=== PATIENT | male | born 1970 | race African-American/Black ===

== ENCOUNTER 2022-07-20 07:53 | Emergency (ER) | payer OTHER, SELFPAY ==
[2022-07-20 07:54] VITALS: BP 164/110; PULSE 70; RESP 14; TEMP 36.2; O2SAT 100; BMI 30.4
[2022-07-20 08:06] VITALS: BP 158/99
--- NOTE | 2022-07-20 08:06 | EKG12_ITS ---
Test Reason : CP Blood Pressure : / mmHG Vent. Rate : 062 BPM Atrial Rate : 062 BPM P-R Int : 188 ms QRS Dur : 082 ms QT Int : 366 ms P-R-T Axes : 064 006 -10 degrees QTc Int : 371 ms Poor data quality, interpretation may be adversely affected Normal sinus rhythm Normal ECG Confirmed by DELILAH TOM, REY ([id number]), photography editor RAQUEL PURDY ([id number]) on 07/22/2022 10:34:16 AM Referred By: BROOKLYNN Confirmed By:REY MAZARIEGOS MD
--- NOTE | 2022-07-20 08:07 | EDS_ITS ---
HPI History of Present Illness Chief Complaint: Chest Pain Narrative Narrative: 51-year-old male past medical history of heartburn having intermittent left- sided chest pain since yesterday. States that last few minutes. Has been coming and going yesterday. States is always in the left pectoral area. He denies any trauma to the area. No nausea or vomiting, no shortness of breath or diaphoresis. He states that he took heartburn medication and it resolved. However, it happened again at 3 AM today. This was approximately 5 hours ago. He denies any leg swelling or other symptoms but states it might be worse with exertion. PFSH PFSH Medical History no medical history Allergy/AdvReac Type Severity Reaction Status Date / Time aspirin AdvReac Other Verified 07/20/22 07:56 Social History Smoking Status: Never smoker ROS ROS ED ROS Narrative Constitutional: No fever, no chills. HEENT: No sore throat. No neck pain. No loss of vision. No rhinorrhea. Cardiovascular: Left-sided chest pain described as achy. No palpitations. No pedal edema. Respiratory: No cough, no shortness of breath. Abdominal: No abdominal pain. No nausea. No vomiting. Genitourinary: No dysuria. No hematuria. Musculoskeletal: No myalgias. No arthralgias. Neurologic: No headaches. No dizziness. No lightheadedness. Skin: No rash. No change in color. Psychiatric: No depression. No anxiety. EXAM Physical Exam Narrative Exam Narrative: Afebrile. Vital signs noted. HEENT: Normocephalic. Atraumatic. PERRL, EOMI. Neck soft and supple. No point tenderness or step off. Cardiovascular: Regular rate and rhythm. No murmurs, rubs, or gallops appreciated. Respiratory: No tachypnea. Lungs clear to auscultation bilaterally. Gastrointestinal: Abdomen soft, nontender, with normoactive bowel sounds. No rebound or guarding. Neurological: Awake. Alert. Nonfocal, nonlateralizing. Skin: No rash. Normal color. No pallor. Musculoskeletal: No pedal edema. Full range of motion extremities. Const Vital Signs: 07/20/22 07:54 07/20/22 08:06 05/14/23 08:06 Temperature 97.2 F L Temperature Source Temporal Pulse Rate 70 Respiratory Rate 14 Respiratory Effort Normal Non-Labored Blood Pressure 164/110 H 158/99 H Blood Pressure Mean 128 118 Pulse Ox 100 Oxygen Delivery Method Room Air 07/20/22 08:09 07/20/22 09:00 Temperature Temperature Source Pulse Rate 62 Respiratory Rate 14 Respiratory Effort Blood Pressure 142/97 H Blood Pressure Mean 112 Pulse Ox 96 Oxygen Delivery Method Room Air Room Air Heart Score History: Slightly/Non-Suspicious ECG: Normal Age: >45 - <65 years Risk Factors: No Risk Factors Score: 1 MDM MDM MDM Narrative Medical decision making narrative: Was noted that patient has slightly elevated blood pressure in the emergency department. I have low suspicion for pulmonary embolism as his pulse is 70 and his pulse ox is 100% on room air, and he does not have risk factors. EKG was obtained and interpreted by myself as normal sinus rhythm at 62 bpm without ectopy or acute ST changes. No STEMI. Feel that cardiac ischemia from ST elevation MS has been ruled out. I will obtain serial troponins to help rule out coronary artery disease. It does sound like he may have more heartburn type symptoms with pain radiating to his left pectoral area. I reviewed his laboratory work, and he has a normal white count of 5.1, hemoglobin normal at 14.4, platelet count normal at 317. Electrolyte panel was reviewed and chloride is slightly elevated at 108 which I think is nonspecific. Glucose elevated appropriately at 118 with a normal anion gap of 6. His initial high-sensitivity troponin is 5. Repeat 2-hour troponin is also 5 for a delta of 0. I do feel that he can be discharged safely home with follow-up to his primary care provider. He did have elevated blood pressure reading of 164/110, but it has come down to borderline at 142/97. He was told he should have this repeated in the next few days and follow-up with his primary care provider. I reviewed his chest x-ray and interpreted it individually and see no evidence of pneumothorax or consolidation. I do not feel that antibiotics are indicated. I also do not feel that he requires observation at this time as I have reviewed his radiology report which confirms my independent interpretation of his chest x-ray. He will follow-up with his primary care provider. Return instructions were reviewed. Disposition is discharged home in stable condition. Patient and are comfortable with the plan. History & Record Review Discussion w/independent historian: Patient Additional record(s) reviewed:: Prior ED visit Lab Data Attestation: I reviewed the patient's lab results. Labs: Laboratory Results - last 24 hr 07/20/22 07/20/22 07/20/22 08:05 08:05 10:16 WBC 5.1 RBC 5.03 Hgb 14.4 Hct 44.8 MCV 89.1 MCH 28.6 MCHC 32.1 RDW Std Deviation 37.2 RDW Coeff of Evonne 11.6 Plt Count 317 MPV 9.3 Immature Gran % (Auto) 0.200 Neut % (Auto) 45.7 L Lymph % (Auto) 42.1 H Tyrrell % (Auto) 10.6 H Eos % (Auto) 0.6 Baso % (Auto) 0.8 Absolute Neuts (auto) 2.3 Absolute Lymphs (auto) 2.15 Nucleated RBC % 0 Sodium 142 Potassium 4.1 Chloride 108 H Carbon Dioxide 28.0 Anion Gap 6 BUN 10 Creatinine 1.29 Estim Creat Clear Calc 74.36 Est GFR (MDRD) Af Amer 75 Est GFR (MDRD) Non-Af 62 BUN/Creatinine Ratio 7.8 L Glucose 118 H Calcium 9.3 Troponin I High Sens 5 5 Radiography Diagnostic Testing: Clinical Impression(s) from Imaging Studies Chest X-Ray 07/20/22 08:11 IMPRESSION: No acute thoracic pathology. Electronically Signed: Carl Reynolds MD at 8:51 EDT Reading Location ID and State: [address] [place] [address] Tel , Service support , Discharge Plan Triage Chief Complaint: Chest Pain ED Provider: Jayson Mcgowan Dx/Rx/DC Orders Clinical Impression: Chest pain, Elevated blood pressure, situational Instructions: ED Chest Pain, Noncardiac Primary Care Provider: Toya Reid NP Referrals: Severo Weathers PA [Med Staff - Adv Practice Prof] - Activity Restrictions/Additional Instructions: Follow-up with your primary care provider in the next few days/this week. Return with increasing pain, new or worsening symptoms. Your blood pressure was slightly elevated today, but then returned to borderline elevated. Have this checked again in the next few days. Disposition Disposition: Home, Self Care
--- NOTE | 2022-07-20 08:11 | RAD_ITS ---
STUDY: X-RAY CHEST REASON FOR EXAM: Male, 51 years old. Chest pain TECHNIQUE: Frontal views of the chest COMPARISON: None. FINDINGS: The lungs are clear. There are no pleural effusions. There is no pneumothorax. The heart is normal in size. The visualized osseous structures are within normal limits. RAD/Chest 1 View (Portable) IMPRESSION: No acute thoracic pathology. Electronically Signed: Carl Reynolds MD at 8:51 EDT ,
[2022-07-20 08:21] LABS: Absolute Lymphocyte Count 2.15 X10^3/uL (0.83-4.51); Absolute Neutrophil Count 2.3 X10^3/uL (2.0-7.7); Basophil# 0.04 X10^3/uL; Basophil% 0.8 % (0-1); Eosinophil# 0.03 X10^3/uL; Eosinophils% 0.6 % (0-5); Hematocrit 44.8 % (40-54); Hemoglobin 14.4 g/dL (13.0-16.5); Lymphocyte # 2.15 X10^3/ul (0.83-4.51); Lymphocyte % 42.1 % (19-41); Mean Corp Hgb Conc 32.1 g/dL (32-36); Mean Corpuscular Hgb 28.6 pg (27.0-32.0); Mean Corpuscular Volume 89.1 fL (80-94); Mean Platelet Vol. 9.3 fl (6.2-12.0); Monocyte# 0.54 X10^3/uL; Monocyte% 10.6 % (0-10); NRBC Flagged by Analyzer 0 % (0-5); Neutrophil # 2.34 X10^3/uL (2.7-7.7); Neutrophil % 45.7 % (47-70); Platelet Count 317 K/mm3 (150-450); RBC Distribution Width CV 11.6 % (11.6-14.6); RBC Distribution Width SD 37.2 fl (35.1-43.9); Red Blood Count 5.03 M/mm3 (4.6-6.2); White Blood Count 5.1 K/mm3 (4.4-11.0)
[2022-07-20 08:42] LABS: Anion Gap 6 (5-15); BUN 10 mg/dL (7-18); BUN/Creat Ratio 7.8 RATIO (10-20); Calcium,Total 9.3 mg/dL (8.5-10.1); Chloride 108 mmol/L (98-107); Creatinine, Serum 1.29 mg/dL (0.70-1.30); EST Glomerular Filtration Rate 62 mL/min (>60); Est Glom Filt Rate - Afr Amer 75 mL/min (>60); Estimated Creatinine Clearance 74.36 ml/min; Glucose 118 mg/dL (74-106); Potassium 4.1 mmol/L (3.5-5.1); Sodium Level 142 mmol/L (136-145); Troponin-I HS (w/2H Reflex) 5 pg/mL (3.0-78.0)
[2022-07-20 09:00] VITALS: BP 142/97; PULSE 62; RESP 14; O2SAT 96
[2022-07-20 10:15] LABS: Reflex Troponin-HS? (from REC) Y
[2022-07-20 10:47] LABS: Troponin-I HS 5 pg/mL (3.0-78.0)
[2022-07-20 11:15] VITALS: BP 139/71; RESP 16; O2SAT 100
== END 2022-07-20 11:15 | disposition home or self-care (01) ==
PROVIDERS: Emergency Provider Emergency Medicine; PCP Registered Nurse; Visit Provider Emergency Medicine
DX: R07.9 Chest pain, unspecified (principal); R03.0 Elevated blood-pressure reading, without diagnosis of hypertension
CPT/HCPCS: 71045; 80048; 84484; 85025; 93005; 99284; A4216

== ENCOUNTER 2023-04-03 08:00 | Outpatient (RCR) | payer OTHER, SELFPAY ==
--- NOTE | 2023-04-03 08:40 | HP.OTEVAL_ITS ---
Patient's Visit Information Visit Information Visit Information: MARYCHUY SAMPSON is a 52 year old M, referred to Occupational Therapy by Toya Reid, ABBEY-C, with a diagnosis of Right elbow pain. Date of Evaluation: 03/20/23 Occupational Therapist: MARCIA Feliciano/Inge, CHT Subjective Subjective: This 52 year old male was seen for OT eval with dx right elbow pain. 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 pt states he works at [employer]- pt states he works 4 days a week 10 hour shifts- pt states he has used a copper fit brace and that helps- pt states ice does help. pt is active, has gym membership and has noticed limited with his exercise routine. Pt would like to decrease his right elbow pain and return to his PLOF. 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 20# increase 7/10 left 120# Special Tests Lat Epiconylitis - as named: right positive Quick DASH-Disab of Arm,Shoulder& Hand Quick DASH Score: 31.6650 Goals Goal:100% adherence to protocol: Yes Comment: latera epi guidelines Goal:ROM equal to unaffected hand: Yes Goal:Origination Specialist/Pinch strength at least 75% of unaffected hand: Yes Goal:No pain with affected hand use: Yes Goal:Full use of affected hand in daily activities including work: Yes Other Goal: Pt will demo understanding of work/lifting and carry ergonomics to decrease stress on tendons to increase pts independent with ADLs, IADLS and work tasks by d/c. Pt will demo understanding of using supportive bracing 80% of workday/ADLS to decrease stress on tendon origin to allow healing and decrease pain by end of 2nd session. pt will demo understanding of lateral epicondylitis precautions by end of 2nd session. Rehabilitation General Assessment: pt demo with positive symptoms of right lat. epi, limiting full use of his right UE with ADLs, IADLs and work tasks. pt would benefit from skilled OT services 1-2x week for 4 weeks to ed. pt on dx, lateral epi precautions, as well as returning pt to his PLOF. Today therapist ed. pt on initiation of phase one of later epi POC., bracing and modalities. Pt demo understanding and agree to POC. Rehabilitation Potential: Good Anticipated Interventions Anticipated Interventions: A/AAROM/PROM, Strengthening, Triggerpoint Release, Modalities, Orthoses, Education re Diagnosis and Home Program Visit Plan Frequency: 1-2x /Week Duration: 4 Weeks TEXT: Thank you for the opportunity to evaluate your patient. For Medicare and Medicare HMO plans, please review the plan of care and approve it. It will need to be FAXED BACK to us at [phone] for Medicare purposes. Please let me know if there are questions or concerns regarding this plan of care. Physician Signature: ___Date:
--- NOTE | 2023-06-17 14:41 | HP.OT.NRP ---
Patient Information Patient Information: MARYCHUY SAMPSON was seen in my office for initial evaluation on 03/20/23. The following Plan of Care was established for this patient: POC Established Initial Frequency: 1-2x /Week Initial Duration: 4 Weeks Anticipated Interventions Anticipated Interventions: A/AAROM/PROM, Strengthening, Triggerpoint Release, Modalities, Orthoses, Education re Diagnosis and Home Program Last Seen Last Seen: This patient was last seen in our office 04/03/23. Pertinent comments regarding their Occupational therapy will appear below: pt was seen for 2 OT sessions. Pt made great gains in OT. Pt was given HEP. Pt at this time has not scheduled further apts and is d/c due to time lapse in services. At this point I will be discontinuing this patient from occupational therapy. I would be happy to see this patient again in the future if found appropriate by the physician. Thank you! Marisela Langford, OTR/L, CHT
== END 2023-04-03 19:00 | disposition home or self-care (01) ==
LOC: OT 08:00
PROVIDERS: PCP Registered Nurse; Visit Provider Registered Nurse
DX: M25.521 Pain in right elbow (principal)
CPT/HCPCS: 97035; 97140; 97166

== ENCOUNTER 2024-11-04 07:30 | Outpatient (RCR) | payer OTHER, SELFPAY ==
--- NOTE | 2024-10-19 12:53 | HP.PTEVAL_ITS ---
Patient's Visit Information Visit Information Visit Information: MARYCHUY SAMPSON is a 53 year old M referred to Physical Therapy by CHIQUI Bocanegra with a diagnosis of R shoulder pain. Date of Evaluation: 10/19/24 Physical Therapist: Reagan Mueller, PT, ATC Visit Plan Frequency: 1-2x /Week Duration: 4 Weeks Plan: Issue and instruct pt on HEP of R shoulder rotator cuff strengthening ex's and scap stab ex's Subjective Subjective: Pt has had R shoulder pain for approximately 3 years. 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 Pt notes he also has a family Hx of RA which he believes may have been contributing to this problem. Pt is R hand dominant. pt notes most of his pain is located on the posterior aspect of his R shoulder. Pt notes occasional sleep difficulty at this time secondary to pain. Pt denies any tingling or numbness in R UE at this time. Pt reports he has had xrays which revealed inflammation in R shoulder. Pt reports he likes to play basketball which he is limited from now secondary to pain. Pt also notes he is limited from specific movements which will automatically produce sharp pain (like reaching out in front of him). 0/10 pain at rest, 6/10 pain at worst Pain R shoulder pain: Pain Intensity (Out of 10): 0 Pain Intensity Range: 6 Objective Objective: Neuro: B UE sensation is WNL to light touch. Palpation: No specific point tenderness ROM: L shoulder flex= 155, abd= 170, ER= 50, IR= WNL; R shoulder flex= 120, abd= 115, ER= 45, IR= Minimal limitation MMT: L shoulder flex= 20, abd= 24, ER= 24, IR= 28 #F; R shoulder flex= 22, abd= 24, ER= 23, IR= 23 #F Special testing: Pos empty can, pos full can, pos HK Balance/Special Test Scores Quick DASH Score: 34.0900 Goals Goal 1:: Decrease R shoulder pain x 50% to aid with sleep Goal Time Frame: 4-6 Weeks Goal 2:: Increase R shoulder flex and abd ROM x 20-30 degrees to aid with overhead reaching Goal Time Frame: 4-6 Weeks Goal 3:: Pt will be I with HEP Goal Time Frame: 4-6 Weeks Rehabilitation Potential Physical Therapy Diagnosis: Pt has R shoulder pain, weakness, and limited ROM secondary to R shoulder impingement syndrome Rehabilitation Potential: Good Anticipated Interventions Patient/Client Instruction: Educate patient on: Condition and Plan of Care For the Purpose of:: To improve self management Therapeutic Exercise to Include: Strength training, Endurance training, Body mechanics, Active ROM and Scapular Strength/Stabilization For the Purpose of:: To decrease pain, To increase ROM and To improve muscle performance and motor function Cryotherapy (ice pack, ice massage): Yes For the Purpose of:: To decrease pain Text: Thank you for the opportunity to evaluate your patient. For Medicare and Medicare HMO plans, please review the plan of care and approve it. It will need to be FAXED BACK to us at [phone] for Medicare purposes. For Medicare only, by signing this I certify the plan of care. Please let me know if there are questions or concerns regarding this plan of care. Physician Signatu re: Date:
--- NOTE | 2024-12-13 10:34 | HP.PT.NRP ---
Patient Information Patient Information: MARYCHUY SAMPSON was seen in my office for initial evaluation on 10/19/24. The following Plan of Care was established for this patient: POC Established Initial Frequency: 1-2x /Week Initial Duration: 4 Weeks Anticipated Interventions Patient/Client Instruction: Educate patient on: Condition and Plan of Care For the Purpose of:: To improve self management Therapeutic Exercise to Include: Strength training, Endurance training, Body mechanics, Active ROM and Scapular Strength/Stabilization For the Purpose of:: To decrease pain, To increase ROM and To improve muscle performance and motor function Cryotherapy (ice pack, ice massage): Yes For the Purpose of:: To decrease pain Last Seen Last Seen: This patient was last seen in our office . Pertinent comments regarding their Physical therapy will appear below: Pt has not returned for greater than 30 days and is discontinued at this time. At this point I will be discontinuing this patient from physical therapy. I would be happy to see this patient again in the future if found appropriate by the physician. Thank you! Reagan Mueller, PT, ATC Balance/Gait/Functional tests Balance/Special Test Scores Quick DASH Score: 34.0900
== END 2024-11-04 19:00 | disposition home or self-care (01) ==
LOC: PT 07:30
PROVIDERS: PCP Registered Nurse; Referring Provider Nurse Practitioner Primary Care; Visit Provider Nurse Practitioner Primary Care
DX: M25.511 Pain in right shoulder (principal)
CPT/HCPCS: 97110; 97161